=== PATIENT | male | born 1985 | race Caucasian/White ===

== ENCOUNTER 2020-10-25 08:30 | Emergency (ER) | payer OTHER ==
[2020-10-25 08:34] VITALS: RESP 16
[2020-10-25] MEDS ORDERED: FAMOTIDINE 20 MG/2 ML VIAL IV STA (08:50)
[2020-10-25] MEDS ORDERED: SODIUM CHLORIDE 0.9% 1,000 ML IV STA (08:50)
[2020-10-25] MEDS ORDERED: ONDANSETRON 4 MG/2 ML VIAL IVP STA (08:50)
--- NOTE | 2020-10-25 08:52 | ED ---
General Adult HPI - General Chief complaint: Nausea/Vomiting/Diarrhea Stated complaint: Allergic reaction Source: patient Mode of arrival: ambulatory Limitations: no limitations - History of Present Illness Initial comments: 35-year-old male presents to the emergency room for not feeling well. Patient reports he has nausea vomiting diarrhea. States he has had this on and off for several months now. States that at 6 AM this morning he had one episode of diarrhea and felt like he had to vomit but could not make himself. Patient states this happens quite frequently. He states that today he decided to come into the ER because he has "just done with it." Patient states he has not tried to follow-up with his primary care doctor over the past several months. Admits to some mild epigastric pain associated with these symptoms. Denies any right upper quadrant pain. Denies any postprandial pain. Patient has no other complaints at this time including shortness of breath, chest pain, headache, or visual changes. - Related Data Home Medications Medication Instructions Recorded Confirmed Citalopram Hydrobromide 40 mg PO HS 10/25/20 10/25/20 [Citalopram HBr] amLODIPine [Norvasc] 5 mg PO HS 10/25/20 10/25/20 Previous Rx's Medication Instructions Recorded Dicyclomine [Bentyl] 20 mg PO TID PRN #20 tablet 10/25/20 Famotidine [Pepcid] 20 mg PO BID #28 tablet 10/25/20 Ondansetron [Zofran ODT] 4 mg PO Q8HR PRN #15 tab 10/25/20 Allergies Allergy/AdvReac Type Severity Reaction Status Date / Time No Known Allergies Allergy Verified 10/25/20 10:02 Review of Systems ROS Statement: Those systems with pertinent positive or pertinent negative responses have been documented in the HPI. ROS Other: All systems not noted in ROS Statement are negative. Past Medical History Past Medical History: No Reported History History of Any Multi-Drug Resistant Organisms: None Reported Past Surgical History: No Surgical Hx Reported Past Psychological History: No Psychological Hx Reported Smoking Status: Never smoker Past Alcohol Use History: None Reported Past Drug Use History: Marijuana General Exam Limitations: no limitations General appearance: alert, in no apparent distress Head exam: Present: atraumatic, normocephalic, normal inspection Eye exam: Present: normal appearance, PERRL, EOMI. Absent: scleral icterus, conjunctival injection ENT exam: Present: normal exam, mucous membranes moist Neck exam: Present: normal inspection, full ROM. Absent: tenderness Respiratory exam: Present: normal lung sounds bilaterally. Absent: respiratory distress, wheezes Cardiovascular Exam: Present: regular rate, normal rhythm, normal heart sounds GI/Abdominal exam: Present: soft, tenderness (minimal epigastric tenderness without guarding or rebound), normal bowel sounds. Absent: distended Back exam: Absent: CVA tenderness (R), CVA tenderness (L) Neurological exam: Present: alert Course Vital Signs 10/25/20 08:31 Temperature 98.0 F Pulse Rate 69 Respiratory 16 Rate Blood Pressure 174/98 O2 Sat by Pulse 100 Oximetry Medical Decision Making - Medical Decision Making Vitals are stable. Physical exam reveals minimal upper abdominal tenderness without guarding or rebound. CBC shows leukocytosis with a left shift. CMP unremarkable. Patient has a touch of elevation of amylase and lipase however this is not 3 times above normal limit. Urinalysis does show 2+ ketones likely secondary to dehydration. Patient was given a liter of normal saline. Gallbladder ultrasound shows no acute process. X-ray KUB shows no acute process. Patient was given pain medications and antiemetics. His symptoms did improve significantly. He is tolerating oral intake. No vomiting actively in the emergency room. Symptoms really started this morning. At this time patient is stable for discharge home. However if he develops worsening symptoms he will return to the emergency room. - Lab Data Result diagrams: 10/25/20 08:53 10/25/20 08:53 Lab Results 10/25/20 10/25/20 10/25/20 Range/Units 08:53 08:53 09:44 WBC 11.2 H (3.8-10.6) k/uL RBC 5.71 (4.30-5.90) m/uL Hgb 16.5 (13.0-17.5) gm/dL Hct 48.6 (39.0-53.0) % MCV 85.3 (80.0-100.0) fL MCH 29.0 (25.0-35.0) pg MCHC 34.0 (31.0-37.0) g/dL RDW 12.4 (11.5-15.5) % Plt Count 211 (150-450) k/uL MPV 7.9 Neutrophils % 79 % Lymphocytes % 14 % Monocytes % 4 % Eosinophils % 1 % Basophils % 1 % Neutrophils # 8.9 H (1.3-7.7) k/uL Lymphocytes # 1.6 (1.0-4.8) k/uL Monocytes # 0.5 (0-1.0) k/uL Eosinophils # 0.2 (0-0.7) k/uL Basophils # 0.1 (0-0.2) k/uL Sodium 138 (137-145) mmol/L Potassium 3.9 (3.5-5.1) mmol/L Chloride 104 (98-107) mmol/L Carbon Dioxide 22 (22-30) mmol/L Anion Gap 12 mmol/L BUN 18 (9-20) mg/dL Creatinine 1.09 (0.66-1.25) mg/dL Est GFR (CKD-EPI)AfAm >90 (>60 ml/min/1.73 sqM) Est GFR (CKD-EPI)NonAf 87 (>60 ml/min/1.73 sqM) Glucose 158 H (74-99) mg/dL Calcium 9.9 (8.4-10.2) mg/dL Total Bilirubin 0.5 (0.2-1.3) mg/dL AST 27 (17-59) U/L ALT 21 (4-49) U/L Alkaline Phosphatase 69 (38-126) U/L Total Protein 8.1 (6.3-8.2) g/dL Albumin 5.0 (3.5-5.0) g/dL Amylase 233 H (30-110) U/L Lipase 484 H (23-300) U/L Urine Color Light Yellow Urine Appearance Cloudy (Clear) Urine pH 8.5 H (5.0-8.0) Ur Specific [place] 1.019 (1.001-1.035) Urine Protein Trace H (Negative) Urine Glucose (UA) 2+ H (Negative) Urine Ketones 2+ H (Negative) Urine Blood Negative (Negative) Urine Nitrite Negative (Negative) Urine Bilirubin Negative (Negative) Urine Urobilinogen <2.0 (<2.0) mg/dL Ur Leukocyte Esterase Negative (Negative) Urine WBC 1 (0-5) /hpf Urine Bacteria Rare H (None) /hpf Urine Mucus Rare H (None) /hpf Disposition Clinical Impression: Nausea vomiting and diarrhea Disposition: HOME SELF-CARE Condition: Good Instructions (If sedation given, give patient instructions): Acute Nausea and Vomiting (ED), Acute Diarrhea (ED) Additional Instructions: Please drink plenty of fluids. Take zofran as needed for nausea. Take pepcid for stomach acid as directed. Follow up with primary care and GI in 1-2 days. If you are having worsening symptoms or are not able to keep down liquids with nausea medication then return to the ER for further evaluation Prescriptions: Dicyclomine [Bentyl] 20 mg PO TID PRN #20 tablet PRN Reason: abdominal pain Famotidine [Pepcid] 20 mg PO BID #28 tablet Ondansetron [Zofran ODT] 4 mg PO Q8HR PRN #15 tab PRN Reason: Nausea Is patient prescribed a controlled substance at d/c from ED?: No Referrals: Quintin Thompson MD [Primary Care Provider] - 1-2 days Tyler Dunn MD [STAFF PHYSICIAN] - 1-2 days Time of Disposition: 11:59
[2020-10-25 09:04] LABS: Basophils # (A) 0.1 k/uL (0-0.2); Basophils % (A) 1 %; Eosinophils # (A) 0.2 k/uL (0-0.7); Eosinophils % (A) 1 %; HCT 48.6 % (39.0-53.0); HGB 16.5 gm/dL (13.0-17.5); Lymphocytes # (A) 1.6 k/uL (1.0-4.8); Lymphocytes % (A) 14 %; MCV 85.3 fL (80.0-100.0); Mean Platelet Volume 7.9; Monocytes # (A) 0.5 k/uL (0-1.0); Monocytes % (A) 4 %; Neutrophils # (A) 8.9 k/uL (1.3-7.7); Neutrophils % (A) 79 %; Platelet Count 211 k/uL (150-450); RBC 5.71 m/uL (4.30-5.90); RDW 12.4 % (11.5-15.5); WBC 11.2 k/uL (3.8-10.6)
[2020-10-25 09:13] LABS: ALT 21 U/L (4-49); AST 27 U/L (17-59); African American GFR (CKD) >90 (>60 ml/min/1.73 sqM); Alkaline Phosphatase 69 U/L (38-126); Amylase 233 U/L (30-110); Anion Gap 12 mmol/L; Blood Urea Nitrogen 18 mg/dL (9-20); Calcium 9.9 mg/dL (8.4-10.2); Carbon Dioxide 22 mmol/L (22-30); Chloride 104 mmol/L (98-107); Glucose 158 mg/dL (74-99); Lipase 484 U/L (23-300); Non-African American GFR(CKD) 87 (>60 ml/min/1.73 sqM); Potassium 3.9 mmol/L (3.5-5.1); Sodium 138 mmol/L (137-145); Total Bilirubin 0.5 mg/dL (0.2-1.3); Total Protein 8.1 g/dL (6.3-8.2)
[2020-10-25] MEDS ORDERED: KETOROLAC 15 MG/ML 1 ML VIAL IVP STA (09:49)
[2020-10-25 10:02] LABS: Appearance,Urine Cloudy (Clear); Bacteria,Urine Rare /hpf; Bilirubin,Urine Negative (Negative); Blood,Urine Negative (Negative); Color,Urine Light Yellow; Glucose,Urine (UA) 2+ (Negative); Leukocyte Esterase,Urine Negative (Negative); Mucus,Urine Rare /hpf; Nitrite,Urine Negative (Negative); PH, Urine 8.5 (5.0-8.0); Protein,Urine Trace (Negative); Specific Gravity,Urine 1.019 (1.001-1.035); Urobilinogen,Urine <2.0 mg/dL (<2.0); WBC,Urine 1 /hpf (0-5)
[2020-10-25] MEDS ORDERED: HYDROmorphone 0.5 MG/0.5 ML SYRINGE IVP STA ×2 (10:25→11:57)
--- NOTE | 2020-10-25 10:26 | US ---
EXAMINATION TYPE: US gallbladder DATE OF EXAM: 10/25/2020 COMPARISON: NONE CLINICAL HISTORY: ruq paun. Pain. Patient states he was unable to eat today. EXAM MEASUREMENTS: Liver Length: 15.2 cm Gallbladder Wall: 0.2 cm CBD: 0.2 cm Right Kidney: 9.3 x 5.8 x 4.7 cm Pancreas: Tail obscured by overlying bowel gas Liver: wnl Gallbladder: wnl Evidence for sonographic Gallegos's sign: neg CBD: wnl Right Kidney: No hydronephrosis or masses seen IMPRESSION: 1. No acute process.
--- NOTE | 2020-10-25 10:45 | XR ---
EXAMINATION TYPE: XR KUB DATE OF EXAM: 10/25/2020 COMPARISON: NONE HISTORY: Pain TECHNIQUE: Single supine KUB image of the abdomen is obtained FINDINGS: Small bowel demonstrates no evidence for dilatation or air fluid levels. Gas and fecal material is seen in non-distended colon. No convincing evidence for pneumoperitoneum. No unusual calcifications. The lung bases are clear. The osseous structures are intact. IMPRESSION: 1. Overall nonobstructive bowel gas pattern.
[2020-10-25] MEDS ORDERED: METOCLOPRAMIDE 5 MG/ML 2 ML VIAL IVP STA (11:15)
[2020-10-25] MEDS ORDERED: diphenhydrAMINE 50 MG/ML 1 ML VIAL IVP STA (11:15)
[2020-10-25 11:16] LABS: Ketones,Urine 2+ (Negative)
[2020-10-25 12:35] VITALS: BP 145/88; PULSE 74; TEMP 97.3
== END 2020-10-25 12:35 | disposition home or self-care (01) ==
LOC: EC 08:30
DX: R11.2 Nausea with vomiting, unspecified (principal); R19.7 Diarrhea, unspecified; R10.13 Epigastric pain; R10.816 Epigastric abdominal tenderness; D72.829 Elevated white blood cell count, unspecified; Z79.899 Other long term (current) drug therapy
CPT/HCPCS: 36415; 74018; 76705; 80053; 81001; 82150; 83690; 85025; 96361; 96374; 96375; 96376; 99284

== ENCOUNTER 2021-07-01 06:29 | Emergency (ER) | payer OTHER ==
[2021-07-01 06:36] VITALS: TEMP 98.2
[2021-07-01] MEDS ORDERED: MORPHINE SULFATE 4 MG/ML SYRINGE IVP STA (07:18)
[2021-07-01] MEDS ORDERED: SODIUM CHLORIDE 0.9% 1,000 ML IV STA (07:18)
[2021-07-01] MEDS ORDERED: ONDANSETRON 4 MG/2 ML VIAL IVP STA (07:18)
[2021-07-01 07:19] LABS: Basophils # (A) 0.1 k/uL (0-0.2); Basophils % (A) 1 %; Eosinophils # (A) 0.3 k/uL (0-0.7); Eosinophils % (A) 2 %; HCT 47.2 % (39.0-53.0); HGB 15.6 gm/dL (13.0-17.5); Lymphocytes # (A) 1.8 k/uL (1.0-4.8); Lymphocytes % (A) 13 %; MCH 28.7 pg (25.0-35.0); MCV 86.9 fL (80.0-100.0); Mean Platelet Volume 8.6; Monocytes # (A) 0.5 k/uL (0-1.0); Monocytes % (A) 4 %; Neutrophils # (A) 11.7 k/uL (1.3-7.7); Neutrophils % (A) 80 %; Platelet Count 226 k/uL (150-450); RBC 5.43 m/uL (4.30-5.90); RDW 11.6 % (11.5-15.5); WBC 14.7 k/uL (3.8-10.6)
--- NOTE | 2021-07-01 07:21 | XR ---
EXAMINATION TYPE: XR KUB DATE OF EXAM: 07/01/2021 COMPARISON: 10/25/2020 HISTORY: Pain TECHNIQUE: Single supine KUB image of the abdomen is obtained FINDINGS: Small bowel demonstrates no evidence for dilatation or air fluid levels. Gas and fecal material is seen in non-distended colon. No convincing evidence for pneumoperitoneum. No unusual calcifications. The lung bases are clear. The osseous structures are intact. IMPRESSION: 1. Overall nonobstructive bowel gas pattern.
--- NOTE | 2021-07-01 07:21 | ED ---
General Adult HPI - General Chief complaint: Abdominal Pain Stated complaint: Abd Pain Time Seen by Provider: 07/01/21 06:37 Source: patient Mode of arrival: wheelchair Limitations: no limitations - History of Present Illness Initial comments: 36-year-old male without any significant past medical history presents to the emergency room for "pancreatic pain." Patient states he has had upper abdominal pain for about 2 hours prior to arrival. Patient states she has nausea with this as well. Patient states he gets these attacks of pain once a month or so. Patient states he usually stays home for them but recently saw a kier drier and was told to come to the emergency room when it happens again to get bloodwork drawn. Patient is requesting something for pain. Patient states he used to drink alcohol but no longer drinks. Patient has no other complaints at this time including shortness of breath, chest pain, vomiting, headache, or visual changes. - Related Data Home Medications Medication Instructions Recorded Confirmed Citalopram Hydrobromide 40 mg PO HS 10/25/20 10/25/20 [Citalopram HBr] amLODIPine [Norvasc] 5 mg PO HS 10/25/20 10/25/20 Previous Rx's Medication Instructions Recorded Dicyclomine [Bentyl] 20 mg PO TID PRN #20 tablet 10/25/20 Famotidine [Pepcid] 20 mg PO BID #28 tablet 10/25/20 Ondansetron [Zofran ODT] 4 mg PO Q8HR PRN #15 tab 10/25/20 Allergies Allergy/AdvReac Type Severity Reaction Status Date / Time No Known Allergies Allergy Verified 07/01/21 06:36 Review of Systems ROS Statement: Those systems with pertinent positive or pertinent negative responses have been documented in the HPI. ROS Other: All systems not noted in ROS Statement are negative. Past Medical History Past Medical History: No Reported History History of Any Multi-Drug Resistant Organisms: None Reported Past Surgical History: No Surgical Hx Reported Past Psychological History: No Psychological Hx Reported Smoking Status: Never smoker Past Alcohol Use History: Occasional Past Drug Use History: Marijuana General Exam Limitations: no limitations General appearance: alert, in no apparent distress Head exam: Present: atraumatic, normocephalic, normal inspection Eye exam: Present: normal appearance, PERRL, EOMI ENT exam: Present: normal exam, mucous membranes moist Neck exam: Present: normal inspection, full ROM. Absent: tenderness Respiratory exam: Present: normal lung sounds bilaterally. Absent: respiratory distress, wheezes Cardiovascular Exam: Present: regular rate, normal rhythm, normal heart sounds GI/Abdominal exam: Present: soft, tenderness (epigastric tendernes, no other upper or lower abd tenderness), normal bowel sounds. Absent: distended Course Vital Signs 07/01/21 07/01/21 07/01/21 06:31 09:03 09:50 Temperature 98.2 F Pulse Rate 55 L 46 L 68 Respiratory 20 16 20 Rate Blood Pressure 173/92 149/87 135/74 O2 Sat by Pulse 100 100 98 Oximetry Medical Decision Making - Medical Decision Making Vitals are stable. Patient well-appearing. Patient does have epigastric tenderness. CBC does show mild leukocytosis. CMP is unremarkable. Lipase is normal. Amylase only minimally elevated 111. Gallbladder ultrasound was normal aside from a positive sonographic Gallegos sign. At this time patient is stable for outpatient management as his has chronically been happening monthly for quite some time. It looks like patient had an appointment with GI in December. He did bring her in order for outpatient labs from that time that he hasn't had drawn yet. I did encourage him to get these drawn and follow back up with GI as soon as possible. Discharged home in stable condition. He will return here for any worsening symptoms. - Lab Data Result diagrams: 07/01/21 06:43 07/01/21 06:43 Lab Results 07/01/21 07/01/21 Range/Units 06:43 06:43 WBC 14.7 H (3.8-10.6) k/uL RBC 5.43 (4.30-5.90) m/uL Hgb 15.6 (13.0-17.5) gm/dL Hct 47.2 (39.0-53.0) % MCV 86.9 (80.0-100.0) fL MCH 28.7 (25.0-35.0) pg MCHC 33.0 (31.0-37.0) g/dL RDW 11.6 (11.5-15.5) % Plt Count 226 (150-450) k/uL MPV 8.6 Neutrophils % 80 % Lymphocytes % 13 % Monocytes % 4 % Eosinophils % 2 % Basophils % 1 % Neutrophils # 11.7 H (1.3-7.7) k/uL Lymphocytes # 1.8 (1.0-4.8) k/uL Monocytes # 0.5 (0-1.0) k/uL Eosinophils # 0.3 (0-0.7) k/uL Basophils # 0.1 (0-0.2) k/uL Sodium 138 (137-145) mmol/L Potassium 4.0 (3.5-5.1) mmol/L Chloride 105 (98-107) mmol/L Carbon Dioxide 21 L (22-30) mmol/L Anion Gap 12 mmol/L BUN 16 (9-20) mg/dL Creatinine 0.94 (0.66-1.25) mg/dL Est GFR (CKD-EPI)AfAm >90 (>60 ml/min/1.73 sqM) Est GFR (CKD-EPI)NonAf >90 (>60 ml/min/1.73 sqM) Glucose 151 H (74-99) mg/dL Calcium 10.0 (8.4-10.2) mg/dL Total Bilirubin 0.6 (0.2-1.3) mg/dL AST 26 (17-59) U/L ALT 20 (4-49) U/L Alkaline Phosphatase 70 (38-126) U/L Total Protein 7.6 (6.3-8.2) g/dL Albumin 4.7 (3.5-5.0) g/dL Amylase 111 H (30-110) U/L Lipase 255 (23-300) U/L Serum Alcohol <10 mg/dL Disposition Clinical Impression: Abdominal pain Disposition: HOME SELF-CARE Condition: Good Instructions (If sedation given, give patient instructions): Abdominal Pain (ED) Additional Instructions: Please take zofran as needed for nausea. Get your outpatient labs done for your specialist. Follow up with GI as soon as possible. Return to the ER for any worsening symptoms. Is patient prescribed a controlled substance at d/c from ED?: No Referrals: Quintin Thompson MD [Primary Care Provider] - 1-2 days Lakshmi Bolton MD [STAFF PHYSICIAN] - 1-2 days Time of Disposition: 08:37
[2021-07-01 07:36] LABS: ALT 20 U/L (4-49); AST 26 U/L (17-59); African American GFR (CKD) >90 (>60 ml/min/1.73 sqM); Albumin 4.7 g/dL (3.5-5.0); Alcohol <10 mg/dL; Alkaline Phosphatase 70 U/L (38-126); Amylase 111 U/L (30-110); Anion Gap 12 mmol/L; Blood Urea Nitrogen 16 mg/dL (9-20); Carbon Dioxide 21 mmol/L (22-30); Chloride 105 mmol/L (98-107); Glucose 151 mg/dL (74-99); Lipase 255 U/L (23-300); Non-African American GFR(CKD) >90 (>60 ml/min/1.73 sqM); Sodium 138 mmol/L (137-145); Total Bilirubin 0.6 mg/dL (0.2-1.3); Total Protein 7.6 g/dL (6.3-8.2)
--- NOTE | 2021-07-01 08:24 | US ---
EXAMINATION TYPE: US gallbladder DATE OF EXAM: 07/01/2021 COMPARISON: Exam 10/25/2020 ultrasound gallbladder CLINICAL HISTORY: pain. abd pain, h/o pancreatitis, N/V EXAM MEASUREMENTS: Liver Length: 15.5 cm Gallbladder Wall: 0.3 cm CBD: 0.4 cm Right Kidney: 9.3 x 4.7 x 4.4 cm Pancreas: wnl its visualized portions Liver: wnl Gallbladder: No evident stone Evidence for sonographic Gallegos's sign: YES CBD: wnl Right Kidney: wnl IMPRESSION: Correlate for positive sonographic Gallegos sign.
[2021-07-01] MEDS ORDERED: HYDROmorphone 0.5 MG/0.5 ML SYRINGE IVP STA (08:38)
[2021-07-01 09:51] VITALS: BP 135/74; PULSE 68; RESP 20
== END 2021-07-01 09:51 | disposition home or self-care (01) ==
LOC: EC 06:29
DX: R10.13 Epigastric pain (principal); D72.829 Elevated white blood cell count, unspecified; F12.90 Cannabis use, unspecified, uncomplicated; Z79.899 Other long term (current) drug therapy
CPT/HCPCS: 80053; 82150; 83690; 85025; 80320; 74018; 76705; 99284; 96374; 96375 ×2; 96361; J2270; J2405; J1170

== ENCOUNTER 2023-02-23 10:18 | Emergency (ER) | payer OTHER ==
[2023-02-23 10:48] VITALS: BP 175/96; PULSE 70; RESP 18; TEMP 97.6
[2023-02-23] MEDS ORDERED: SODIUM CHLORIDE 0.9% 1,000 ML IV STA ×2 (10:54→11:55)
[2023-02-23] MEDS ORDERED: ONDANSETRON 4 MG/2 ML VIAL IVP STA (10:55)
[2023-02-23] MEDS ORDERED: KETOROLAC 15 MG/ML 1 ML VIAL IVP STA (10:56)
[2023-02-23 11:42] LABS: ALT 22 U/L (4-49); AST 24 U/L (17-59); African American GFR (CKD) >90 (>60 ml/min/1.73 sqM); Albumin 4.4 g/dL (3.5-5.0); Alkaline Phosphatase 59 U/L (38-126); Anion Gap 11 mmol/L; Blood Urea Nitrogen 13 mg/dL (9-20); Calcium 9.1 mg/dL (8.4-10.2); Carbon Dioxide 23 mmol/L (22-30); Chloride 105 mmol/L (98-107); Glucose 147 mg/dL (74-99); Lipase 224 U/L (23-300); Non-African American GFR(CKD) >90 (>60 ml/min/1.73 sqM); Potassium 3.7 mmol/L (3.5-5.1); Sodium 139 mmol/L (137-145); Total Bilirubin 0.3 mg/dL (0.2-1.3)
[2023-02-23] MEDS ORDERED: HYDROmorphone 0.5 MG/0.5 ML SYRINGE IVP STA (11:55)
[2023-02-23 12:02] LABS: Appearance,Urine Clear (Clear); Bilirubin,Urine Negative (Negative); Blood,Urine Negative (Negative); Color,Urine Yellow; Glucose,Urine (UA) Trace (Negative); Ketones,Urine 2+ (Negative); Leukocyte Esterase,Urine Negative (Negative); Nitrite,Urine Negative (Negative); PH, Urine 6.5 (5.0-8.0); Protein,Urine Trace (Negative); Specific Gravity,Urine 1.025 (1.001-1.035); Urobilinogen,Urine <2.0 mg/dL (<2.0)
[2023-02-23 12:27] LABS: Basophils % (A) 0 %; Eosinophils # (A) 0.1 k/uL (0-0.7); Eosinophils % (A) 1 %; HGB 15.5 gm/dL (13.0-17.5); Lymphocytes % (A) 7 %; MCH 28.7 pg (25.0-35.0); MCHC 33.6 g/dL (31.0-37.0); MCV 85.1 fL (80.0-100.0); Mean Platelet Volume 8.6; Monocytes # (A) 0.4 k/uL (0-1.0); Monocytes % (A) 3 %; Neutrophils # (A) 11.8 k/uL (1.3-7.7); Neutrophils % (A) 88 %; Platelet Count 195 k/uL (150-450); RDW 12.2 % (11.5-15.5); WBC 13.4 k/uL (3.8-10.6)
--- NOTE | 2023-02-23 12:59 | CT ---
EXAMINATION TYPE: CT abdomen pelvis w con DATE OF EXAM: 02/23/2023 COMPARISON: None HISTORY: abd pain CT DLP: 847.7 mGycm CONTRAST: CT scan of the abdomen and pelvis is performed without Oral Contrast and with IV Contrast, patient in jected with 100 mL of Isovue 300. FINDINGS: LUNG BASES-: No visible nodule. No infiltrate. LIVER/GB: No calcified gallstones. No space occupying hepatic lesion. Biliary tree is of normal ca liber. PANCREAS: No inflammation. No distinct mass. SPLEEN: No splenic enlargement. No lesion seen. ADRENALS: No nodule. No thickening. KIDNEYS/BLADDER: No hydronephrosis. No nephrolithiasis. No distinct renal mass. Urinary bladder g rossly unremarkable. BOWEL: Normal appendix. Normal bowel caliber. No inflammation. GENITAL ORGANS: No gross abnormality. LYMPH NODES: No greater than 1cm abdominal or pelvic lymph nodes are appreciated. AORTA: No significant abnormality. OSSEOUS STRUCTURES: No significant abnormality is seen. OTHER: Trace amount of fluid within the pelvis. IMPRESSION: 1. No acute intra-abdominal process seen to account for the patient's symptoms.
--- NOTE | 2023-02-23 13:29 | ED ---
Abdominal Pain HPI - General Chief Complaint: Abdominal Pain Stated Complaint: ABD Pain Time Seen by Provider: 02/23/23 10:54 Source: patient, family Mode of arrival: ambulatory Limitations: no limitations - History of Present Illness Initial Comments: Patient is a 37 -year-old male who presents to the emergency department for abdominal pain. It started this morning. Patient has history of pancreatitis he feels he is having a pancreatitis episode. He reports pain all over his abdomen there is no radiation. States these episodes occur every couple weeks for several months. Pain is worse than his typical episodes today. He reports nausea without vomiting. No fever or chills. No urinary symptoms. No diarrhea, constipation. He does admit to intermittent bright red blood streaks in his stool for the past year. States he has never got it evaluated. He denies family history of colon cancer. He has never had a colonoscopy. He has an appointment with Dr. Bolton next week. Patient did drink alcohol over the weekend. He denies use of new medications. - Related Data Home Medications Medication Instructions Recorded Confirmed Citalopram Hydrobromide 40 mg PO HS 10/25/20 10/25/20 [Citalopram HBr] amLODIPine [Norvasc] 5 mg PO HS 10/25/20 10/25/20 Previous Rx's Medication Instructions Recorded Dicyclomine [Bentyl] 20 mg PO TID PRN #20 tablet 10/25/20 Famotidine [Pepcid] 20 mg PO BID #28 tablet 10/25/20 Ondansetron [Zofran ODT] 4 mg PO Q8HR PRN #15 tab 10/25/20 Acetaminophen Tab [Tylenol] 650 mg PO Q4H PRN #30 tab 02/23/23 Ibuprofen [Motrin] 800 mg PO Q8HR PRN #30 tab 02/23/23 Ondansetron Odt [Zofran Odt] 4 mg PO Q8HR PRN #10 tab 02/23/23 Allergies Allergy/AdvReac Type Severity Reaction Status Date / Time No Known Allergies Allergy Verified 02/23/23 10:49 Review of Systems ROS Statement: Those systems with pertinent positive or pertinent negative responses have been documented in the HPI. ROS Other: All systems not noted in ROS Statement are negative. Past Medical History Past Medical History: No Reported History History of Any Multi-Drug Resistant Organisms: None Reported Past Surgical History: No Surgical Hx Reported Past Psychological History: No Psychological Hx Reported Smoking Status: Never smoker Past Alcohol Use History: Occasional Past Drug Use History: Marijuana General Exam Limitations: no limitations General appearance: alert, in no apparent distress Head exam: Present: atraumatic, normocephalic, normal inspection Eye exam: Present: normal appearance, PERRL, EOMI. Absent: scleral icterus, conjunctival injection, periorbital swelling Respiratory exam: Present: normal lung sounds bilaterally. Absent: respiratory distress, wheezes, rales, rhonchi, stridor Cardiovascular Exam: Present: regular rate, normal rhythm, normal heart sounds. Absent: systolic murmur, diastolic murmur, rubs, gallop, clicks GI/Abdominal exam: Present: soft, tenderness (Mild generalized), normal bowel sounds. Absent: distended, guarding, rebound, rigid Neurological exam: Present: alert, oriented X3, CN II-XII intact Psychiatric exam: Present: normal affect, normal mood Skin exam: Present: warm, dry, intact, normal color. Absent: rash Course Vital Signs 02/23/23 02/23/23 10:45 13:37 Temperature 97.6 F Pulse Rate 70 Respiratory 18 18 Rate Blood Pressure 175/96 O2 Sat by Pulse 100 Oximetry Medical Decision Making - Medical Decision Making Was pt. sent in by a medical professional or institution (PHANI Fernandez, ODD SHOE EXAMINER, urgent care, hospital, or usp...) When possible be specific @ -No Did you speak to anyone other than the patient for history (EMS, parent, family, police, friend...)? What history was obtained from this source @ -No Did you review nursing and triage notes (agree or disagree)? Why? @ -I reviewed and agree with nursing and triage notes Were old charts reviewed (outside hosp., previous admission, EMS record, old EKG, old radiological studies, urgent care reports/EKG's, usp records)? Report findings @ -No old charts were reviewed Differential Diagnosis (chest pain, altered mental status, abdominal pain women, abdominal pain men, vaginal bleeding, weakness, fever, dyspnea, syncope, headache, dizziness, GI bleed, back pain, seizure, CVA, palpatations, mental health)? @ -Differential Abdominal Pain Men: Appendicitis, cholecystitis, diverticulosis, ischemic bowel, pancreatitis, hepatitis, UTI, gastroenteritis, AAA, incarcerated hernia, bowel obstruction, constipation, inflammatory bowel, hepatitis, peptic ulcer disease, splenic infarction, perforated viscus, testicular torsion, this is not meant to be an all-inclusive list EKG interpreted by me (3pts min.). @ -[None X-rays interpreted by me (1pt min.). @ -None done CT interpreted by me (1pt min.). @ -No acute intra-abdominal process U/S interpreted by me (1pt. min.). @ -None done What testing was considered but not performed or refused? (CT, X-rays, U/S, labs)? Why? @ -None What meds were considered but not given or refused? Why? @ -None Did you discuss the management of the patient with other professionals (jesse truong i.eMelva Fernandez, PA, ODD SHOE EXAMINER, lab, RT, psych nurse, psychotherapist social worker, grain broker, teacher, animal control officer, wrapper caser)? Give summary @ -No Was smoking cessation discussed for >3mins.? @ -No Was critical care preformed (if so, how long)? @ -No Were there social determinants of health that impacted care today? How? (Homelessness, low income, unemployed, alcoholism, drug addiction, transportation, low edu. Level, literacy, decrease access to med. care, half-way, rehab)? @ -No Was there de-escalation of care discussed even if they declined (Discuss DNR or withdrawal of care, Hospice)? DNR status @ -No What co-morbidities impacted this encounter? (DM, HTN, Smoking, COPD, CAD, Cancer, CVA, ARF, Chemo, Hep., AIDS, mental health diagnosis, sleep apnea, morbid obesity)? @ -None Was patient admitted / discharged? Hospital course, mention meds given and route, prescriptions, significant lab abnormalities, going to OR and other pertinent info. @Patient presenting for generalized abdominal pain. He is well-appearing the abdomen is soft with mild generalized tenderness. He is afebrile. Upon evaluation patient immediately asks for Dilaudid. Laboratory studies obtained there is mild leukocytosis at 13.4. Lipase within normal limits. Lactic is elevated at 2.5, I suspect related to dehydration. Urinalysis reveals 2+ ketones. Stool occult is negative. Patient given toradol, IV fluids. CT interpreted by myself/radiology showing no acute intra abdominal process. Results discussed with patient. Patient states pain did not respond to toradol. He was given 1 dose of dilaudid with improvement however did ask for another dose. This was declined as patient will need to follow up with GI specialist for chronic pain. He is in stable medical condition for discharge. We discussed alternation of tylenol and motrin for pain patient to follow up with Dr. Che huggins weeek as planned. Undiagnosed new problem with uncertain prognosis? @ -No Drug Therapy requiring intensive monitoring for toxicity (Heparin, Nitro, Insulin, Cardizem)? @ -No Were any procedures done? @ -No Diagnosis/symptom? @ -abdominal pain Acute, or Chronic, or Acute on Chronic? @ -acute on chronic Uncomplicated (without systemic symptoms) or Complicated (systemic symptoms)? @ -uncomplicated Side effects of treatment? @ -No Exacerbation, Progression, or Severe Exacerbation? @ -No Poses a threat to life or bodily function? How? (Chest pain, USA, [place], pneumonia, PE, COPD, DKA, ARF, appy, cholecystitis, CVA, Diverticulitis, Homicidal, Suicidal, threat to staff... and all critical care pts) @ -No Florecita Quintero is my attending - Lab Data Result diagrams: 02/23/23 11:22 02/23/23 11:22 Lab Results 02/23/23 02/23/23 02/23/23 Range/Units 11:22 11:22 11:22 WBC 13.4 H (3.8-10.6) k/uL RBC 5.40 (4.30-5.90) m/uL Hgb 15.5 (13.0-17.5) gm/dL Hct 46.0 (39.0-53.0) % MCV 85.1 (80.0-100.0) fL MCH 28.7 (25.0-35.0) pg MCHC 33.6 (31.0-37.0) g/dL RDW 12.2 (11.5-15.5) % Plt Count 195 (150-450) k/uL MPV 8.6 Neutrophils % 88 % Lymphocytes % 7 % Monocytes % 3 % Eosinophils % 1 % Basophils % 0 % Neutrophils # 11.8 H (1.3-7.7) k/uL Lymphocytes # 1.0 (1.0-4.8) k/uL Monocytes # 0.4 (0-1.0) k/uL Eosinophils # 0.1 (0-0.7) k/uL Basophils # 0.0 (0-0.2) k/uL Sodium 139 (137-145) mmol/L Potassium 3.7 (3.5-5.1) mmol/L Chloride 105 (98-107) mmol/L Carbon Dioxide 23 (22-30) mmol/L Anion Gap 11 mmol/L BUN 13 (9-20) mg/dL Creatinine 0.96 (0.66-1.25) mg/dL Est GFR (CKD-EPI)AfAm >90 (>60 ml/min/1.73 sqM) Est GFR (CKD-EPI)NonAf >90 (>60 ml/min/1.73 sqM) Glucose 147 H (74-99) mg/dL Lactic Ac Sepsis Rflx Plasma Lactic Acid Jaden (0.7-2.0) mmol/L Calcium 9.1 (8.4-10.2) mg/dL Total Bilirubin 0.3 (0.2-1.3) mg/dL AST 24 (17-59) U/L ALT 22 (4-49) U/L Alkaline Phosphatase 59 (38-126) U/L Total Protein 7.0 (6.3-8.2) g/dL Albumin 4.4 (3.5-5.0) g/dL Lipase 224 (23-300) U/L Urine Color Yellow Urine Appearance Clear (Clear) Urine pH 6.5 (5.0-8.0) Ur Specific [place] 1.025 (1.001-1.035) Urine Protein Trace H (Negative) Urine Glucose (UA) Trace H (Negative) Urine Ketones 2+ H (Negative) Urine Blood Negative (Negative) Urine Nitrite Negative (Negative) Urine Bilirubin Negative (Negative) Urine Urobilinogen <2.0 (<2.0) mg/dL Ur Leukocyte Esterase Negative (Negative) Stool Occult Blood (Negative) 02/23/23 02/23/23 02/23/23 Range/Units 11:22 11:49 11:56 WBC (3.8-10.6) k/uL RBC (4.30-5.90) m/uL Hgb (13.0-17.5) gm/dL Hct (39.0-53.0) % MCV (80.0-100.0) fL MCH (25.0-35.0) pg MCHC (31.0-37.0) g/dL RDW (11.5-15.5) % Plt Count (150-450) k/uL MPV Neutrophils % % Lymphocytes % % Monocytes % % Eosinophils % % Basophils % % Neutrophils # (1.3-7.7) k/uL Lymphocytes # (1.0-4.8) k/uL Monocytes # (0-1.0) k/uL Eosinophils # (0-0.7) k/uL Basophils # (0-0.2) k/uL Sodium (137-145) mmol/L Potassium (3.5-5.1) mmol/L Chloride (98-107) mmol/L Carbon Dioxide (22-30) mmol/L Anion Gap mmol/L BUN (9-20) mg/dL Creatinine (0.66-1.25) mg/dL Est GFR (CKD-EPI)AfAm (>60 ml/min/1.73 sqM) Est GFR (CKD-EPI)NonAf (>60 ml/min/1.73 sqM) Glucose (74-99) mg/dL Lactic Ac Sepsis Rflx Y Plasma Lactic Acid Jaden 2.5 H* (0.7-2.0) mmol/L Calcium (8.4-10.2) mg/dL Total Bilirubin (0.2-1.3) mg/dL AST (17-59) U/L ALT (4-49) U/L Alkaline Phosphatase (38-126) U/L Total Protein (6.3-8.2) g/dL Albumin (3.5-5.0) g/dL Lipase (23-300) U/L Urine Color Urine Appearance (Clear) Urine pH (5.0-8.0) Ur Specific [place] (1.001-1.035) Urine Protein (Negative) Urine Glucose (UA) (Negative) Urine Ketones (Negative) Urine Blood (Negative) Urine Nitrite (Negative) Urine Bilirubin (Negative) Urine Urobilinogen (<2.0) mg/dL Ur Leukocyte Esterase (Negative) Stool Occult Blood Negative (Negative) Disposition Clinical Impression: Abdominal pain Disposition: HOME SELF-CARE Condition: Good Instructions (If sedation given, give patient instructions): Abdominal Pain (ED) Additional Instructions: Follow-up with Dr. Bolton next week as planned. Take medication as directed. Increase water intake. Return to the emergency department if you experience new, concerning, or worsening symptoms. Prescriptions: Ibuprofen [Motrin] 800 mg PO Q8HR PRN #30 tab PRN Reason: Pain Acetaminophen Tab [Tylenol] 650 mg PO Q4H PRN #30 tab PRN Reason: Pain Ondansetron Odt [Zofran Odt] 4 mg PO Q8HR PRN #10 tab PRN Reason: Nausea Is patient prescribed a controlled substance at d/c from ED?: No Referrals: Quintin Thompson MD [Primary Care Provider] - 1-2 days
== END 2023-02-23 13:43 | disposition home or self-care (01) ==
LOC: EC 10:18
DX: R10.9 Unspecified abdominal pain (principal); F12.90 Cannabis use, unspecified, uncomplicated
CPT/HCPCS: 36415; 80053; 83605; 83690; 85025; 82272; 81003; 74177; 99284; 96374; 96375 ×2; 96361 ×2; J2405; J1885; J1170; Q9967

== ENCOUNTER 2023-04-15 06:19 | Day surgery (SDC) | payer OTHER ==
[2023-04-15 06:47] VITALS: RESP 16; TEMP 97.2
[2023-04-15] MEDS ORDERED: LIDOCAINE 1% (10MG/ML) FOR IV START INTRADERMA PRN (06:53)
[2023-04-15] MEDS ORDERED: LACTATED RINGERS 1,000 ML IV SCH (06:53)
[2023-04-15] MEDS ORDERED: PROPOFOL 10 MG/ML 20 ML VIAL IV ONE (07:18)
[2023-04-15] MEDS ORDERED: LIDOCAINE 2% INJ 20 MG/ML (2 ML VIAL) ONE (07:18)
--- NOTE | 2023-04-15 07:44 | P.PCN ---
Date of Procedure: 04/15/23 Procedure(s) Performed: Brief history: Patient is a pleasant 37-year-old white male scheduled for an elective upper endoscopy as well as colonoscopy as a part of evaluation of diffuse abdominal pain, intermittent nausea vomiting and change in bowel habits for the last 2-3 years duration. Also has intermittent rectal bleeding happens once or twice a week. Procedure performed: Esophagogastroduodenoscopy with biopsy Colonoscopy Preoperative diagnosis: Diffuse abdominal pain, intermittent nausea vomiting Change in bowel habits and rectal bleeding Anesthesia: MAC Procedure: After informed consent was obtained from the patient was brought into the endoscopy unit and IV sedation was administered by anesthesia under continuous monitoring. Initially upper endoscopy was done. The Olympus GF 160 video endoscope was inserted inserted into the mouth and esophagus intubated without any difficulty and was gradually advanced into the stomach and duodenum and carefully examined. The bulb and second part of the duodenum appeared normal. Biopsies were done from the duodenum to rule out celiac disease. The scope was then withdrawn into the stomach adequately insufflated with air and upon careful examination the antrum had mild patchy areas of erythema consistent with gastritis and biopsies were done from this area. Mucosa body, cardia and fundus appeared normal. With 2 superficial erosions consistent with LA grade B reflux esophagitis. with no erythema erosions or ulcerations. Rest of the esophagus appeared normal. Patient tolerated the procedure well. At this time the patient continued to remain sedation. Initial digital rectal examination was normal. Olympus CF 160 video colonoscope was then inserted into the rectum and gradually advanced to the cecum without any difficulty. Careful examination was performed as the scope was gradually being withdrawn. The prep was excellent. The cecum, ascending colon, transverse colon, descending colon, sigmoid colon and rectum appeared normal. Retroflexion was performed in the rectum and small internal hemorrhoids were noted. Patient tolerated the procedure well. Impression: 1. Upper endoscopy revealed mild antral gastritis and LA grade B reflux esophagitis. 2. Colonoscopy was within normal limits with no evidence of colorectal neoplasia, and small internal hemorrhoids Recommendations: Findings of this examination were discussed with the patient as well as his family. He was advised to follow with the biopsy results and he'll be seen in office in 2-3 weeks.
[2023-04-15 08:07] VITALS: BP 121/80; PULSE 48
== END 2023-04-15 08:29 | disposition home or self-care (01) ==
LOC: ORWHC2ENDO 06:19
PROVIDERS: ATTEND Internal Medicine Gastroenterology
DX: K29.50 Unspecified chronic gastritis without bleeding (principal); K21.00 Gastro-esophageal reflux disease with esophagitis, without bleeding; K64.8 Other hemorrhoids; K62.5 Hemorrhage of anus and rectum; K29.80 Duodenitis without bleeding; Z79.899 Other long term (current) drug therapy
CPT/HCPCS: 88305; 45378; 43239; J2704; J2001

== ENCOUNTER 2023-04-24 10:56 | Inpatient (IN) | payer OTHER ==
--- NOTE | 2023-04-24 12:32 | ED ---
General Adult HPI - General Chief complaint: Psychiatric Symptoms Stated complaint: petition Time Seen by Provider: 04/24/23 11:05 Source: patient, police, RN notes reviewed, old records reviewed Mode of arrival: ambulatory Limitations: no limitations - History of Present Illness Initial comments: This is a 37-year-old male who presents emergency department stating that he is suicidal. Patient states she's had a history of depression and he attempted suicide once in the past. Patient states today he tried to hang himself but cannot slipped and by that time years regarding talk to his and told her goodbye and she called the [employer]. Patient denies taking any pills or alcohol today. Patient denies any drug use. Patient denies any physical complaints today. - Related Data Home Medications Medication Instructions Recorded Confirmed Citalopram Hydrobromide 40 mg PO HS 10/25/20 04/10/23 [Citalopram HBr] ALPRAZolam [Xanax] 0.25 mg PO DAILY PRN 04/10/23 04/10/23 Previous Rx's Medication Instructions Recorded Dicyclomine [Bentyl] 20 mg PO TID PRN #20 tablet 10/25/20 Ondansetron [Zofran ODT] 4 mg PO Q8HR PRN #15 tab 10/25/20 Ibuprofen [Motrin] 800 mg PO Q8HR PRN #30 tab 02/23/23 Allergies Allergy/AdvReac Type Severity Reaction Status Date / Time No Known Allergies Allergy Verified 04/24/23 11:07 Review of Systems ROS Statement: Those systems with pertinent positive or pertinent negative responses have been documented in the HPI. ROS Other: All systems not noted in ROS Statement are negative. Past Medical History Past Medical History: GERD/Reflux, Hypertension Additional Past Medical History / Comment(s): Nausea/rectal bleeding. Stomach ulcer as a child History of Any Multi-Drug Resistant Organisms: None Reported Past Surgical History: No Surgical Hx Reported Additional Past Surgical History / Comment(s): EGD Past Anesthesia/Blood Transfusion Reactions: No Reported Reaction Past Psychological History: Anxiety, Depression Smoking Status: Former smoker Past Alcohol Use History: Rare Past Drug Use History: Marijuana - Past Family History Father Family Medical History: Coronary Artery Disease (CAD), Diabetes Mellitus, Hypertension Additional Family Medical History / Comment(s): Rare bone disease/tumors Mother Family Medical History: No Reported History General Exam - General Exam Comments Initial Comments: GENERAL: Patient is well-developed and well-nourished. Patient is nontoxic and well- hydrated and is in no acute distress. ENT: Neck is soft and supple. No significant lymphadenopathy is noted. Oropharynx is clear. Moist mucous membranes. Neck has full range of motion without eliciting any pain. EYES: The sclera were anicteric and conjunctiva were pink and moist. Extraocular movements were intact and pupils were equal round and reactive to light. Eyelids were unremarkable. PULMONARY: Unlabored respirations. Good breath sounds bilaterally. No audible rales rho nchi or wheezing was noted. CARDIOVASCULAR: There is a regular rate and rhythm without any murmurs gallops or rubs. ABDOMEN: Soft and nontender with normal bowel sounds. SKIN: Skin is clear with no lesions or rashes and otherwise unremarkable. NEUROLOGIC: Patient is alert and oriented x3. Cranial nerves II through XII are grossly intact. Motor and sensory are also intact. Normal speech, volume and content. Symmetrical smile. MUSCULOSKELETAL: Normal extremities with adequate strength and full range of motion. LYMPHATICS: No significant lymphadenopathy is noted PSYCHIATRIC: Patient states he suicidal. Patient also states she's very depressed. Patient states he tried to hang himself today but then not slipped Limitations: no limitations Course Vital Signs 04/24/23 11:02 Temperature 98.1 F Pulse Rate 68 Respiratory 18 Rate Blood Pressure 172/109 O2 Sat by Pulse 98 Oximetry Medical Decision Making - Medical Decision Making Was pt. sent in by a medical professional or institution (, PHANI, RELIEF WORKER, urgent care, hospital, or halfway...) When possible be specific @ -[No] Did you speak to anyone other than the patient for history (EMS, parent, family, police, friend...)? What history was obtained from this source @ -[No] Did you review nursing and triage notes (agree or disagree)? Why? @ -[I reviewed and agree with nursing and triage notes] Were old charts reviewed (outside hosp., previous admission, EMS record, old EKG, old radiological studies, urgent care reports/EKG's, halfway records)? Report findings @ -[No old charts were reviewed] Differential Diagnosis (chest pain, altered mental status, abdominal pain women, abdominal pain men, vaginal bleeding, weakness, fever, dyspnea, syncope, headache, dizziness, GI bleed, back pain, seizure, CVA, palpatations, mental health, musculoskeletal)? @ -Differential Mental Health Depression, anxiety, bipolar, psychosis, schizophrenia, borderline personality, situational depression, adjustment disorder, behavioral disorder, brain tumor, malingering, substance abuse, encephalopathy, medication reaction, dementia, hypothyroidism, degenerative neurologic disorder, lupus.... This is not meant to be all-inclusive list EKG interpreted by me (3pts min.). @ -[As above] X-rays interpreted by me (1pt min.). @ -[None done] CT interpreted by me (1pt min.). @ -[None done] U/S interpreted by me (1pt. min.). @ -[None done] What testing was considered but not performed or refused? (CT, X-rays, U/S, labs)? Why? @ -[None] What meds were considered but not given or refused? Why? @ -[None] Did you discuss the management of the patient with other professionals (professionals i.e. , PA, RELIEF WORKER, lab, RT, psych nurse, family welfare social work professor, cylinder tester, teacher, liaison officer, disease case manager rn)? Give summary @ -Spoke with the EPS nurse Was smoking cessation discussed for >3mins.? @ -[No] Was critical care preformed (if so, how long)? @ -[No] Were there social determinants of health that impacted care today? How? (Homelessness, low income, unemployed, alcoholism, drug addiction, transportation, low edu. Level, literacy, decrease access to med. care, [facility], rehab)? @ -[No] Was there de-escalation of care discussed even if they declined (Discuss DNR or withdrawal of care, Hospice)? DNR status @ -[No] What co-morbidities impacted this encounter? (DM, HTN, Smoking, COPD, CAD, Cancer, CVA, ARF, Chemo, Hep., AIDS, mental health diagnosis, sleep apnea, mor bid obesity)? @ -[None] Was patient admitted / discharged? Hospital course, mention meds given and route, prescriptions, significant lab abnormalities, going to OR and other pertinent info. @ -Patient was never in any distress while in the emergency department he had no difficulty speaking or breathing. EPS evaluated the patient and determined the patient needed to be admitted patient will be admitted to the psychiatric floor Undiagnosed new problem with uncertain prognosis? @ -[No] Drug Therapy requiring intensive monitoring for toxicity (Heparin, Nitro, Insulin, Cardizem)? @ -[No] Were any procedures done? @ -[No] Diagnosis/symptom? @ -Suicide attempt Acute, or Chronic, or Acute on Chronic? @ -Acute Uncomplicated (without systemic symptoms) or Complicated (systemic symptoms)? @ -Complicated Side effects of treatment? @ -[No] Exacerbation, Progression, or Severe Exacerbation? @ -[No] Poses a threat to life or bodily function? How? (Chest pain, [place], [place], pneumonia, PE, COPD, DKA, ARF, appy, cholecystitis, CVA, Diverticulitis, Homicidal, Suicidal, threat to staff... and all critical care pts) @ -Patient is suicidal and if he makes his significant symptoms he could kill himself. - Lab Data Lab Results 04/24/23 04/24/23 Range/Units 12:44 12:44 Urine Color Light Yellow Urine Appearance Clear (Clear) Urine pH 5.0 (5.0-8.0) Ur Specific [place] 1.017 (1.001-1.035) Urine Protein Negative (Negative) Urine Glucose (UA) Negative (Negative) Urine Ketones 2+ H (Negative) Urine Blood Small H (Negative) Urine Nitrite Negative (Negative) Urine Bilirubin Negative (Negative) Urine Urobilinogen <2.0 (<2.0) mg/dL Ur Leukocyte Esterase Negative (Negative) Urine RBC <1 (0-5) /hpf Urine Mucus Rare H (None) /hpf Urine Opiates Screen Not Detected (NotDetected) Ur Oxycodone Screen Not Detected (NotDetected) Urine Methadone Screen Not Detected (NotDetected) Ur Propoxyphene Screen Not Detected (NotDetected) Ur Barbiturates Screen Not Detected (NotDetected) U Tricyclic Antidepress Not Detected (NotDetected) Ur Phencyclidine Scrn Not Detected (NotDetected) Ur Amphetamines Screen Not Detected (NotDetected) U Methamphetamines Scrn Not Detected (NotDetected) U Benzodiazepines Scrn Detected H (NotDetected) Urine Cocaine Screen Not Detected (NotDetected) U Marijuana (THC) Screen Detected H (NotDetected) Disposition Clinical Impression: Depression, Attempted suicide Disposition: ADMITTED IP TO THIS [facility] Referrals: Quintin Thompson MD [Primary Care Provider] - 1-2 days Time of Disposition: 14:22
[2023-04-24 12:57] LABS: Appearance,Urine Clear (Clear); Bilirubin,Urine Negative (Negative); Blood,Urine Small (Negative); Color,Urine Light Yellow; Glucose,Urine (UA) Negative (Negative); Ketones,Urine 2+ (Negative); Leukocyte Esterase,Urine Negative (Negative); Mucus,Urine Rare /hpf; Nitrite,Urine Negative (Negative); Protein,Urine Negative (Negative); RBC,Urine <1 /hpf (0-5); Specific Gravity,Urine 1.017 (1.001-1.035); Urobilinogen,Urine <2.0 mg/dL (<2.0)
[2023-04-24 13:07] LABS: Amphetamine Screen,Urine Not Detected (NotDetected); Barbiturate Screen,Urine Not Detected (NotDetected); Benzodiazepines Screen,Urine Detected (NotDetected); Cocaine Screen,Urine Not Detected (NotDetected); Methadone Screen, Urine Not Detected (NotDetected); Opiate Screen,Urine Not Detected (NotDetected); Oxycodone Screen, Urine Not Detected (NotDetected); Phencyclidine Screen,Urine Not Detected (NotDetected); Tricyclic Antidepressant,Urine Not Detected (NotDetected); Urn Cannabinoid Scrn Detected (NotDetected)
[2023-04-24] MEDS ORDERED: MAG HYDROX/AL HYDROX/SIMETH 30 ML CUP PO PRN (17:03)
[2023-04-24] MEDS ORDERED: ACETAMINOPHEN TAB 325 MG TAB PO PRN (17:03)
[2023-04-24] MEDS ORDERED: MAGNESIUM HYDROXIDE 2,400 MG/30 ML CUP PO PRN (17:03)
[2023-04-24] MEDS ORDERED: haloperidoL 5 MG TAB PO PRN (17:09)
[2023-04-24] MEDS ORDERED: HALOPERIDOL LACTATE 5 MG/ML 1 ML VIAL IM PRN (17:09)
[2023-04-24] MEDS: LORazepam 1 MG TAB PO SCH ×2 (17:48→20:31)
[2023-04-24 18:16] LABS: HCT 46.9 % (39.0-53.0); HGB 15.3 gm/dL (13.0-17.5); MCH 28.1 pg (25.0-35.0); MCHC 32.7 g/dL (31.0-37.0); MCV 85.7 fL (80.0-100.0); Mean Platelet Volume 8.4; Platelet Count 192 k/uL (150-450); RBC 5.47 m/uL (4.30-5.90); RDW 12.6 % (11.5-15.5)
[2023-04-24 18:34] LABS: ALT 80 U/L (4-49); AST 267 U/L (17-59); African American GFR (CKD) >90 (>60 ml/min/1.73 sqM); Albumin 4.9 g/dL (3.5-5.0); Alkaline Phosphatase 56 U/L (38-126); Anion Gap 6 mmol/L; Blood Urea Nitrogen 14 mg/dL (9-20); Calcium 9.3 mg/dL (8.4-10.2); Carbon Dioxide 27 mmol/L (22-30); Chloride 104 mmol/L (98-107); Glucose 90 mg/dL (74-99); Non-African American GFR(CKD) >90 (>60 ml/min/1.73 sqM); Sodium 137 mmol/L (137-145); Total Bilirubin 0.9 mg/dL (0.2-1.3); Total Protein 7.8 g/dL (6.3-8.2)
--- NOTE | 2023-04-24 22:30 | P.CONS ---
History of Present Illness - Reason for Consult Consult date: 04/24/23 - History of Present Illness The patient is a 37-year-old male with a PMH of depression and anxiety who presented to the emergency room with complaint of depression and suicidal ideation. The patient was admitted to the mental health unit when he was seen and evaluated. The patient reports that he recently discovered that his is planning on him and that she is seeing other people. He attempted to commit suicide by himself. He reports long standing abdominal discomfort for which he recently underwent an EGD and colonoscopy and is scheduled for follow- up appointment for the results with Dr. Amato. He denied any additional complaints at the time of interview. There are experiencing chest discomfort, shortness of breath, fever, chills, cough, nausea, vomiting, diarrhea. Reports recreational marijuana use with social once or twice monthly alcohol use. Denied any additional substance use. Denied tobacco use. Review of systems: Pertinent positives and negatives as discussed in HPI, a complete review of systems was performed and all other systems are negative. Physical examination: General: non toxic, no distress, appears at stated age, normal weight Derm: no unusual rashes/lesions, no unusual ecchymoses, warm, dry Head: atraumatic, normocephalic, symmetric Eyes: EOMI, no lid lag, anicteric sclera ENT: Nose and ears atraumatic, no thrush, no pharyngeal erythema Neck: trachea midline, supple Mouth: no lip lesion, mucus membranes moist Cardiovascular: S1S2 reg, no murmur, no edema Lungs: CTA bilateral, no rhonchi, no rales , no accessory muscle use Abdominal: soft, nontender to palpation, no guarding Ext: no gross muscle atrophy, no contractures, Neuro: No gross focal neuro deficits noted Psych: Alert, oriented, appropriate affect Assessment: Marijuana abuse Abnormal LFTs, unclear etiology Depression and suicidal ideation Imaging: None performed Data Review: Laboratory evaluation was reviewed with UA unremarkable with urine toxicology positive for marijuana and benzodiazepines with AST 267 and ALT is 80. Plan: Advised on importance of cessation Monitor LFTs for improvement Defer management to primary psychiatry service Thank you for allowing us to participate in the care of this patient. We will follow peripherally. Do not hesitate to contact us with the pain and 1 and is he is a pleasant is and is is a 2000 and is questions. Someone can be reached from the [facility] hospitalist group at all hours of the day at . Past Medical History Past Medical History: GERD/Reflux, Hypertension Additional Past Medical History / Comment(s): Nausea/rectal bleeding. Stomach ulcer as a child History of Any Multi-Drug Resistant Organisms: None Reported Past Surgical History: No Surgical Hx Reported Additional Past Surgical History / Comment(s): EGD Past Anesthesia/Blood Transfusion Reactions: No Reported Reaction Past Psychological History: Anxiety, Depression Additional Psychological History / Comment(s): Pt resides with spouse, child Smoking Status: Never smoker Past Alcohol Use History: Rare Additional Past Alcohol Use History / Comment(s): Pt started smoking in 1997 and quit 12 yrs ago. Past Drug Use History: Marijuana Additional Drug Use History / Comment(s): Smokes marijuana daily. - Past Family History Father Family Medical History: Coronary Artery Disease (CAD), Diabetes Mellitus, Hypertension Additional Family Medical History / Comment(s): Rare bone disease/tumors Mother Family Medical History: No Reported History Medications and Allergies Home Medications Medication Instructions Recorded Confirmed Type Citalopram Hydrobromide 40 mg PO DAILY 10/25/20 04/24/23 History [Citalopram HBr] ALPRAZolam [Xanax] 0.125 - 0.25 mg PO BID PRN 04/10/23 04/24/23 History Allergies Allergy/AdvReac Type Severity Reaction Status Date / Time No Known Allergies Allergy Verified 04/24/23 11:07 Physical Exam Vitals: Vital Signs Temp Pulse Pulse Resp BP BP Pulse Ox 04/24/23 17:59 97.7 F 64 16 148/97 100 04/24/23 17:10 98.6 F 78 18 160/84 98 04/24/23 11:02 98.1 F 68 18 172/109 98 Intake and Output 04/24/23 04/24/23 04/24/23 06:59 14:59 22:59 Other: Weight 71.668 kg 71.668 kg Results CBC & Chem 7: 04/24/23 17:56 04/24/23 17:56 Labs: Abnormal Lab Results - Last 24 Hours (Table) 04/24/23 04/24/23 04/24/23 Range/Units 12:44 12:44 17:56 AST 267 H (17-59) U/L ALT 80 H (4-49) U/L Urine Ketones 2+ H (Negative) Urine Blood Small H (Negative) Urine Mucus Rare H (None) /hpf U Benzodiazepines Scrn Detected H (NotDetected) U Marijuana (THC) Screen Detected H (NotDetected)
[2023-04-25] MEDS: CITALOPRAM HYDROBROMIDE 20 MG TAB PO SCH (07:56)
[2023-04-25] MEDS: LORazepam 1 MG TAB PO SCH ×2 (07:56→12:39)
[2023-04-25] MEDS: NICOTINE 14MG/24HR PATCH TRANSDERM SCH (07:57)
[2023-04-25 08:08] LABS: ALT 84 U/L (4-49); AST 254 U/L (17-59); African American GFR (CKD) >90 (>60 ml/min/1.73 sqM); Albumin 4.5 g/dL (3.5-5.0); Alkaline Phosphatase 51 U/L (38-126); Anion Gap 5 mmol/L; Blood Urea Nitrogen 14 mg/dL (9-20); Calcium 9.2 mg/dL (8.4-10.2); Carbon Dioxide 28 mmol/L (22-30); Chloride 104 mmol/L (98-107); Glucose 94 mg/dL (74-99); Non-African American GFR(CKD) 85 (>60 ml/min/1.73 sqM); Potassium 4.7 mmol/L (3.5-5.1); Sodium 137 mmol/L (137-145); Total Bilirubin 0.9 mg/dL (0.2-1.3); Total Protein 7.2 g/dL (6.3-8.2)
--- NOTE | 2023-04-25 12:54 | P.HP ---
Psychiatric H&P - . H&P Date: 04/25/23 History & Physical: Allergies Allergy/AdvReac Type Severity Reaction Status Date / Time No Known Allergies Allergy Verified 04/24/23 11:07 Vital Signs Temp 97.7 F 04/24/23 17:59 Pulse 89 04/25/23 04:05 Resp 16 04/24/23 17:59 BP 125/84 04/25/23 04:05 Pulse Ox 100 04/24/23 17:59 FiO2 Intake & Output 04/24/23 04/25/23 04/25/23 18:59 06:59 18:59 Weight 71.668 kg Laboratory Last Values WBC 8.0 k/uL (3.8-10.6) 04/24/23 17:56 RBC 5.47 m/uL (4.30-5.90) 04/24/23 17:56 Hgb 15.3 gm/dL (13.0-17.5) 04/24/23 17:56 Hct 46.9 % (39.0-53.0) 04/24/23 17:56 MCV 85.7 fL (80.0-100.0) 04/24/23 17:56 MCH 28.1 pg (25.0-35.0) 04/24/23 17:56 MCHC 32.7 g/dL (31.0-37.0) 04/24/23 17:56 RDW 12.6 % (11.5-15.5) 04/24/23 17:56 Plt Count 192 k/uL (150-450) 04/24/23 17:56 MPV 8.4 04/24/23 17:56 Sodium 137 mmol/L (137-145) 04/25/23 07:19 Potassium 4.7 mmol/L (3.5-5.1) 04/25/23 07:19 Chloride 104 mmol/L (98-107) 04/25/23 07:19 Carbon Dioxide 28 mmol/L (22-30) 04/25/23 07:19 Anion Gap 5 mmol/L 04/25/23 07:19 BUN 14 mg/dL (9-20) 04/25/23 07:19 Creatinine 1.10 mg/dL (0.66-1.25) 04/25/23 07:19 Est GFR (CKD-EPI)AfAm >90 (>60 ml/min/1.73 sqM) 04/25/23 07:19 Est GFR (CKD-EPI)NonAf 85 (>60 ml/min/1.73 sqM) 04/25/23 07:19 Glucose 94 mg/dL (74-99) 04/25/23 07:19 Calcium 9.2 mg/dL (8.4-10.2) 04/25/23 07:19 Total Bilirubin 0.9 mg/dL (0.2-1.3) 04/25/23 07:19 AST 254 U/L (17-59) H 04/25/23 07:19 ALT 84 U/L (4-49) H 04/25/23 07:19 Alkaline Phosphatase 51 U/L (38-126) 04/25/23 07:19 Total Protein 7.2 g/dL (6.3-8.2) 04/25/23 07: Albumin 4.5 g/dL (3.5-5.0) 04/25/23 07:19 TSH 6.100 mIU/L (0.465-4.680) H 04/25/23 07:19 Urine Color Light Yellow 04/24/23 12:44 Urine Appearance Clear (Clear) 04/24/23 12:44 Urine pH 5.0 (5.0-8.0) 04/24/23 12:44 Ur Specific [place] 1.017 (1.001-1.035) 04/24/23 12:44 Urine Protein Negative (Negative) 04/24/23 12:44 Urine Glucose (UA) Negative (Negative) 04/24/23 12:44 Urine Ketones 2+ (Negative) H 04/24/23 12:44 Urine Blood Small (Negative) H 04/24/23 12:44 Urine Nitrite Negative (Negative) 04/24/23 12:44 Urine Bilirubin Negative (Negative) 04/24/23 12:44 Urine Urobilinogen <2.0 mg/dL (<2.0) 04/24/23 12:44 Ur Leukocyte Esterase Negative (Negative) 04/24/23 12:44 Urine RBC <1 /hpf (0-5) 04/24/23 12:44 Urine Mucus Rare /hpf (None) H 04/24/23 12:44 Urine Opiates Screen Not Detected (NotDetected) 04/24/23 12:44 Ur Oxycodone Screen Not Detected (NotDetected) 04/24/23 12:44 Urine Methadone Screen Not Detected (NotDetected) 04/24/23 12:44 Ur Propoxyphene Screen Not Detected (NotDetected) 04/24/23 12:44 Ur Barbiturates Screen Not Detected (NotDetected) 04/24/23 12:44 U Tricyclic Antidepress Not Detected (NotDetected) 04/24/23 12:44 Ur Phencyclidine Scrn Not Detected (NotDetected) 04/24/23 12:44 Ur Amphetamines Screen Not Detected (NotDetected) 04/24/23 12:44 U Methamphetamines Scrn Not Detected (NotDetected) 04/24/23 12:44 U Benzodiazepines Scrn Detected (NotDetected) H 04/24/23 12:44 Urine Cocaine Screen Not Detected (NotDetected) 04/24/23 12:44 U Marijuana (THC) Screen Detected (NotDetected) H 04/24/23 12:44 Coronavirus (PCR) Not Detected (Not Detectd) 04/24/23 15:00 04/25/23 12:45 This is a psychiatric evaluation on Dede Larry who is a 37-year-old male with history of depression and chronic use of cannabis and mushrooms Patient states that he is currently going through problems in his marriage for the last 2 months Patient feels that he abandoned and his and that he was too focused on his work and gone from home quite a bit He says that 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 He states that he also was involved in marital counseling for the last 2 months He says that his had hinted that they should date someone else and move on Patient stated that he took her hint and called an old acquaintance to start a relationship He states that the checked his phone and after she found him trying to reach someone else that she decided to go for a divorce Patient reports that she was testing him and that he had failed the test He says that he felt very depressed and suicidal and that when he called his parents they decided to have him come to the hospital and get some help He states that he uses cannabis daily as well as also uses magic mushrooms from time to time Patient stated that he is a 14-year-old son with his Past history personal and social history as described above Patient currently lives with his and a 14-year-old child Patient denies any previous psychiatric hospitalizations or inpatient care patient reports that his parents are supportive Mental status examination: General Appearance: Patient appears to be stated age is alert, directable, and attempts to cooperate. Good eye contact Patient has earrings and is both ears Patient appears to have fair hygiene and grooming. Behavior: Patient is seated without any agitated behavior. Speech: Patient's speech is fluent and nonpressured. Soft tone. Mood/Affect: Patient reports their mood is depressed and anxious affect is congruent. Suicidality/Homicidality: Patient denies having any homicidal ideation intent or plan. Denies any suicidal ideations intent or plan Perceptions: Patient denies any visual hallucinations and denies any auditory hallucinations Though content/process: There is no evidence of any delusional thought content and thought process is linear and goal-directed. Memory and concentration: AOX3, grossly intact for the purposes of this session Judgment and insight: poor, Diagnosis: Adjustment disorder with mixed emotional features Major depressive disorder acute Bipolar disorder versus mild psychosis most likely drug related Marital conflicts Rule out personality disorder with borderline traits PLAN: -Patient is admitted under voluntary status to MHU for stabilization of psychiatric symptoms and safety. Continue Celexa 40 mg daily Patient was also taking Xanax at home and was started automatically on lorazepam in the hospital However with his history of substance use will see him to gabapentin 100 mg 3 times a day for anxiety when necessary Patient has signed adult voluntary form and medication consent and is placed in patient's chart. Haldol and Vistaril PRN for agitation/aggression -NRT - nicotine patch -SW on board for discharge planning. Encourage patient to participate in groups to work on coping skills. hopeful for discharge early next week if she continues to improve, possibly thursday vs thursday back home. Noah Bui M.D. 04/25/2023
[2023-04-25 13:18] LABS: Chol/HDL Ratio 3.87 Ratio; LDL Cholesterol,Calculated 115.7 mg/dL (0.0-131.0)
[2023-04-25] MEDS ORDERED: GABAPENTIN 100 MG CAP PO SCH (16:00)
[2023-04-25] MEDS ORDERED: hydrOXYzine pamoate 25 MG CAP PO PRN (18:17)
[2023-04-25] MEDS ORDERED: GABAPENTIN 100 MG CAP PO PRN (18:18)
[2023-04-25] MEDS: GABAPENTIN 100 MG CAP PO SCH (20:40)
[2023-04-25] MEDS: LORazepam 2 MG/ML INJ IM PRN (20:58)
[2023-04-26] MEDS: GABAPENTIN 100 MG CAP PO SCH ×3 (07:58→20:38)
[2023-04-26] MEDS: CITALOPRAM HYDROBROMIDE 20 MG TAB PO SCH (07:58)
[2023-04-26] MEDS: NICOTINE 14MG/24HR PATCH TRANSDERM SCH (08:00)
--- NOTE | 2023-04-26 09:56 | P.PN ---
Subjective Progress Note Date: 04/26/23 Principal diagnosis: Diagnosis: Adjustment disorder with mixed emotional features Major depressive disorder acute Bipolar disorder versus mild psychosis most likely drug related Marital conflicts Rule out personality disorder with borderline traits 04/26/23 The patient reports that he was very anxious and panicky when he was informed that the medications were not continued Patient referred to the gabapentin although this was never started since this was never discussed with the patient and the cocaine initially entering the order I had discontinued it until I discuss it with the patient This was then restarted after the nursing was able to talk to him and in the afternoon Patient was referring to his Ativan which was discontinued earlier although he had The Ativan when necessary in the chart which was still available to the patient Patient comes across as very simple and concrete Denies any suicidal or homicidal ideations or plans Mental status examination: General Appearance: Patient appears to be stated age is alert, directable, and attempts to cooperate. Good eye contact Patient has earrings and is both ears Patient appears to have fair hygiene and grooming. Behavior: Patient is seated without any agitated behavior. Speech: Patient's speech is fluent and nonpressured. Soft tone. Mood/Affect: Patient reports their mood is depressed and anxious affect is congruent. Suicidality/Homicidality: Patient denies having any homicidal ideation intent o r plan. Denies any suicidal ideations intent or plan Perceptions: Patient denies any visual hallucinations and denies any auditory hallucinations Though content/process: There is no evidence of any delusional thought content and thought process is linear and goal-directed. Memory and concentration: AOX3, grossly intact for the purposes of this session Judgment and insight: poor, Diagnosis: Adjustment disorder with mixed emotional features Major depressive disorder acute Bipolar disorder versus mild psychosis most likely drug related Marital conflicts Rule out personality disorder with borderline traits PLAN: -Patient is admitted under voluntary status to MHU for stabilization of psyc hiatric symptoms and safety. Continue Celexa 40 mg daily Patient was also taking Xanax at home and was started automatically on lorazepam in the hospital However with his history of substance use will see him to gabapentin 100 mg 3 times a day for anxiety when necessary Patient has signed adult voluntary form and medication consent and is placed in patient's chart. Haldol and Vistaril PRN for agitation/aggression -NRT - nicotine patch -SW on board for discharge planning. Encourage patient to participate in groups to work on coping skills. hopeful for discharge early next week if she continues to improve, possibly thursday vs thursday back home. Noah Bui M.D. 04/26/2023 Objective - Vital Signs Vital signs: Vital Signs Temp 97.7 F 04/24/23 17:59 Pulse 105 H 04/26/23 08:01 Resp 16 04/24/23 17:59 BP 138/90 04/26/23 08:01 Pulse Ox 100 04/24/23 17:59 FiO2 - Labs CBC & Chem 7: 04/24/23 17:56 04/25/23 07:19
[2023-04-26] MEDS: LORazepam 2 MG/ML INJ IM PRN (21:26)
[2023-04-27 06:04] VITALS: BP 128/85; PULSE 72; RESP 18; TEMP 97.9
[2023-04-27] MEDS: CITALOPRAM HYDROBROMIDE 20 MG TAB PO SCH (07:53)
[2023-04-27] MEDS: GABAPENTIN 100 MG CAP PO SCH (07:53)
--- NOTE | 2023-04-27 12:20 | P.DS ---
Providers Date of admission: 04/24/23 16:56 Expected date of discharge: 04/27/23 Attending physician: William Adams MD Consults: 04/24/23 17:03 Consult Physician Routine Consulting Provider: Giovany Reed Consult Reason/Comments: medical management Do you want consulting provider notified?: Yes Primary care physician: Patrice Thompson - Discharge Diagnosis(es) (1) Adjustment disorder with mixed emotional features Current Visit: Yes Status: Acute Priority: High (2) Major depressive disorder Current Visit: Yes Status: Acute Priority: High (3) Marital conflict Current Visit: Yes Status: Acute Priority: High (4) Personality disorder, unspecified Current Visit: Yes Status: Chronic Priority: Medium Hospital Course: Admission HPI: Initial psychiatric evaluation was completed by Dr. 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 He states that he also was involved in marital counseling for the last 2 months He says that his had hinted that they should date someone else and move on Patient stated that he took her hint and called an old acquaintance to start a relationship He states that the checked his phone and after she found him trying to reach someone else that she decided to go for a divorce Patient reports that she was testing him and that he had failed the test He says that he felt very depressed and suicidal and that when he called his parents they decided to have him come to the hospital and get some help He states that he uses cannabis daily as well as also uses magic mushrooms from time to time Patient stated that he is a 14-year-old son with his Past history personal and social history as described above Patient currently lives with his and a 14-year-old child Patient denies any previous psychiatric hospitalizations or inpatient care patient reports that his parents are supportive" Hospital course: Upon admission to the unit patient was initially presenting as anxious. Patient was however directable and agreeable to commence treatment. Patient got along well with other patients on the unit and followed unit protocol. Patient was compliant with the medications and denied any side effects throughout hospital course. Patient was started on his home medication of Celexa. His Xanax was held as the patient was started on Ativan as needed. He was started on gabapentin to due to his history of substance-abuse and off label prescribing for anxiety. Patient spoke of his stressors and engaged in therapy both group and individual. Patient was also seen by medical team for history and physical exam. Over the course of the hospitalization, the patient displayed gradual but signif icant improvement regards to his target symptoms of depression, anxiety, and suicidal ideation. He attended groups with the high-level participation. He became more future and goal oriented and develop better insight and judgment. He reported wanting to live for himself and for his family. He expressed future orientation stating that his son would be starting high school and would have orientation on 04/28/2023. On the day of discharge, the patient is not reporting any suicidal or homicidal ideation, intention, and/or plan. He is not reporting any auditory or visual hallucinations. He denies any paranoia or other delusions. He has been adherent with his medication is not endorsing any significant side effects. He reports no medical issues or concerns and denies any chest pain, shortness of breath, palpitations, akathisia, or tardive dyskinesia. He was counseled at length and the importance of medication adherence and appropriate outpatient follow-up. He was also provided with psychoeducation regarding personality disorders and marital conflict. As the patient no longer met criteria for continued inpatient psychiatric hospitalization, he was subsequently discharged after appropriate safety planning. The patient did report that he had firearms in the home however her treatment team has been able to confirm that he would not have access as they are currently locked up and he would not have access to the hill. Mental status exam: General Appearance: Patient appears to be stated age is alert, pleasant, and cooperative. Patient is in no acute distress and has fair hygiene and grooming Behavior: Patient is calmly seated without any agitated behavior. Speech: Patient's speech is fluent and nonpressured. Mood/Affect: Patient reports their mood is "much better", affect is congruent and euthymic to bright. Suicidality/Homicidality: Patient reports no suicidal or homicidal ideation, intention, and/or plan Perceptions: Patient denies any auditory or visual hallucinations. Though content/process: There is no evidence of any delusional thought content and thought process is linear and goal-directed. The patient is future and goal oriented Memory and concentration: AOX3, grossly intact for the purposes of this session. Can spell "WORLD" backwards correctly. Judgment and insight: Improved Impression: Adjustment disorder with mixed emotional features Major depressive disorder acute Marital conflicts Rule out personality disorder with borderline traits Plan: -Continue with discharge today as patient has improved and stabilized psychiatrically and is not currently an imminent threat to himself and/or others. Patient will remain at chronically elevated risk due to a prior attempt at suicide. He does however have numerous protective factors including duty to his son. -Continue medications: Celexa 40 mg by mouth daily for depression/anxiety Neurontin 200 mg by mouth 3 times a day for off label use for anxiety. Patient understands that this is not FDA approved for anxiety however is agreeable to utilizing the medication. -Patient was counseled on the need for medication compliance and appropriate follow-up at mental health and also primary care for medical issues. Patient verbalized understanding and agreed. -Social work to arrange for and conduct family meeting to ensure safety upon discharge and answer any questions/concerns. Social work also to arrange for patients [facility] along with follow up with primary care provider. -Patient counseled on abstaining from recreational drugs and marijuana and alcohol. Was informed/educated on the adverse effects on their physical and mental health. Patient verbally agreed and understood. -Patient was instructed to return to the hospital or seek immediate medical care if their psychiatric or medical symptoms do worsen or reoccur. -Psychoeducation and supportive therapy provided to patient. Risks and benefits of pharmacological treatment versus the risks and benefits of nontreatment weighed and discussed. Informed consent discussion held. Common side effects of psychotropics discussed such as, but not limited to headache, GI disturbance, sexual dysfunction, movement disorders, sedation, and orthostatic hypotension. Life threatening and blackbox warnings of prescribed medications also discussed. Potential risks of operating a vehicle or heavy machinery discussed with patient at length. Advised on importance of compliance and a reliable and responsible manner. Patient advised to review FDA consumer labeling of all medications prior to taking. Patient verbalized understanding of potential risks, and agrees with current treatment plan. Patient advised to medically contact physician/emergency personnel if any acute changes in condition occur. Vital Signs Temp 97.9 F 04/27/23 06:04 Pulse 72 04/27/23 06:04 Resp 18 04/27/23 06:04 BP 128/85 04/27/23 06:04 Pulse Ox 98 04/27/23 06:04 FiO2 Intake & Output 04/26/23 04/27/23 04/27/23 18:59 06:59 18:59 Weight 70.7 kg Laboratory Results WBC 8.0 k/uL (3.8-10.6) 04/24/23 17:56 RBC 5.47 m/uL (4.30-5.90) 04/24/23 17:56 Hgb 15.3 gm/dL (13.0-17.5) 04/24/23 17:56 Hct 46.9 % (39.0-53.0) 04/24/23 17:56 MCV 85.7 fL (80.0-100.0) 04/24/23 17:56 MCH 28.1 pg (25.0-35.0) 04/24/23 17:56 MCHC 32.7 g/dL (31.0-37.0) 04/24/23 17:56 RDW 12.6 % (11.5-15.5) 04/24/23 17:56 Plt Count 192 k/uL (150-450) 04/24/23 17:56 MPV 8.4 04/24/23 17:56 Sodium 137 mmol/L (137-145) 04/25/23 07:19 Potassium 4.7 mmol/L (3.5-5.1) 04/25/23 07:19 Chloride 104 mmol/L (98-107) 04/25/23 07:19 Carbon Dioxide 28 mmol/L (22-30) 04/25/23 07:19 Anion Gap 5 mmol/L 04/25/23 07:19 BUN 14 mg/dL (9-20) 04/25/23 07:19 Creatinine 1.10 mg/dL (0.66-1.25) 04/25/23 07:19 Est GFR (CKD-EPI)AfAm >90 (>60 ml/min/1.73 sqM) 04/25/23 07:19 Est GFR (CKD-EPI)NonAf 85 (>60 ml/min/1.73 sqM) 04/25/23 07:19 Glucose 94 mg/dL (74-99) 04/25/23 07:[address] Glu mg/dL 111 mg/dL 04/25/23 07:19 Hemoglobin A1c 5.5 % (<=6.0) 04/25/23 07:19 Calcium 9.2 mg/dL (8.4-10.2) 04/25/23 07:19 Total Bilirubin 0.9 mg/dL (0.2-1.3) 04/25/23 07:19 AST 254 U/L (17-59) H 04/25/23 07:19 ALT 84 U/L (4-49) H 04/25/23 07:19 Alkaline Phosphatase 51 U/L (38-126) 04/25/23 07:19 Total Protein 7.2 g/dL (6.3-8.2) 04/25/23 07:19 Albumin 4.5 g/dL (3.5-5.0) 04/25/23 07:19 Triglycerides 115.00 mg/dL (0.00-149.00) 04/25/23 07:19 Cholesterol 187.00 mg/dL (0.00-200.00) 04/25/23 07:19 LDL Cholesterol, Calc 115.7 mg/dL (0.0-131.0) 04/25/23 07:19 VLDL Cholesterol, Calc 23.00 mg/dL (5.00-40.00) 04/25/23 07:19 HDL Cholesterol 48.30 mg/dL (40.00-60.00) 04/25/23 07:19 Cholesterol/HDL Ratio 3.87 Ratio 04/25/23 07:19 TSH 6.100 mIU/L (0.465-4.680) H 04/25/23 07:19 Urine Color Light Yellow 04/24/23 12:44 Urine Appearance Clear (Clear) 04/24/23 12:44 Urine pH 5.0 (5.0-8.0) 04/24/23 12:44 Ur Specific [place] 1.017 (1.001-1.035) 04/24/23 12:44 Urine Protein Negative (Negative) 04/24/23 12:44 Urine Glucose (UA) Negative (Negative) 04/24/23 12:44 Urine Ketones 2+ (Negative) H 04/24/23 12:44 Urine Blood Small (Negative) H 04/24/23 12:44 Urine Nitrite Negative (Negative) 04/24/23 12:44 Urine Bilirubin Negative (Negative) 04/24/23 12:44 Urine Urobilinogen <2.0 mg/dL (<2.0) 04/24/23 12:44 Ur Leukocyte Esterase Negative (Negative) 04/24/23 12:44 Urine RBC <1 /hpf (0-5) 04/24/23 12:44 Urine Mucus Rare /hpf (None) H 04/24/23 12:44 Urine Opiates Screen Not Detected (NotDetected) 04/24/23 12:44 Ur Oxycodone Screen Not Detected (NotDetected) 04/24/23 12:44 Urine Methadone Screen Not Detected (NotDetected) 04/24/23 12:44 Ur Propoxyphene Screen Not Detected (NotDetected) 04/24/23 12:44 Ur Barbiturates Screen Not Detected (NotDetected) 04/24/23 12:44 U Tricyclic Antidepress Not Detected (NotDetected) 04/24/23 12:44 Ur Phencyclidine Scrn Not Detected (NotDetected) 04/24/23 12:44 Ur Amphetamines Screen Not Detected (NotDetected) 04/24/23 12:44 U Methamphetamines Scrn Not Detected (NotDetected) 04/24/23 12:44 U Benzodiazepines Scrn Detected (NotDetected) H 04/24/23 12:44 Urine Cocaine Screen Not Detected (NotDetected) 04/24/23 12:44 U Marijuana (THC) Screen Detected (NotDetected) H 04/24/23 12:44 Coronavirus (PCR) Not Detected (Not Detectd) 04/24/23 15:00 Allergies Allergy/AdvReac Type Severity Reaction Status Date / Time No Known Allergies Allergy Verified 04/24/23 11:07 Patient Condition at Discharge: Stable Plan - Discharge Summary Discharge Rx Participant: No New Discharge Prescriptions: New Citalopram Hydrobromide [CeleXA] 40 mg PO DAILY 15 Days #30 tab Gabapentin [Neurontin] 200 mg PO TID 15 Days #90 cap Discontinued Citalopram Hydrobromide [Citalopram HBr] 40 mg PO DAILY ALPRAZolam [Xanax] 0.125 - 0.25 mg PO BID PRN PRN Reason: Anxiety Discharge Medication List Citalopram Hydrobromide [CeleXA] 40 mg PO DAILY 15 Days #30 tab 04/27/23 [Rx] Gabapentin [Neurontin] 200 mg PO TID 15 Days #90 cap 04/27/23 [Rx] Follow up Appointment(s)/Referral(s): [facility] - 05/01/23 1:30 pm (Georgina Meyers Arrive at !:30 with insurance card, and identification card) Quintin Thompson MD [Primary Care Provider] - 1-2 days Patient Instructions/Handouts: Depression (DC) Activity/Diet/Wound Care/Special Instructions: Avoid the use of street drugs and alcohol. Take all medications as prescribed. When you are in need of refills on your medications, please contact your medical provider and/or outpatient psychiatrist/provider to have this done. Please go to your scheduled outpatient appointment for aftercare treatment. If symptoms return or become worse, call the crisis line at and/or go to the nearest emergency room for evaluation. National Suicide Hotline 058. Discharge Disposition: HOME SELF-CARE
[2023-04-27] MEDS ORDERED: GABAPENTIN 100 MG CAP PO SCH (16:00)
== END 2023-04-27 12:57 | disposition home or self-care (01) | DRG 882 ==
LOC: EC 10:56 → 3MHU 16:56
PROVIDERS: ADMIT Psychiatry & Neurology Psychiatry; ATTEND Psychiatry & Neurology Psychiatry
DX: F43.23 Adjustment disorder with mixed anxiety and depressed mood (principal); F33.9 Major depressive disorder, recurrent, unspecified; R45.851 Suicidal ideations; Z20.822 Contact with and (suspected) exposure to COVID-19; F43.12 Post-traumatic stress disorder, chronic; F12.10 Cannabis abuse, uncomplicated; R74.01 Elevation of levels of liver transaminase levels; I10 Essential (primary) hypertension; K21.9 Gastro-esophageal reflux disease without esophagitis; Z63.0 Problems in relationship with spouse or partner; Z79.899 Other long term (current) drug therapy; Z87.11 Personal history of peptic ulcer disease; Z91.51 Personal history of suicidal behavior
CPT/HCPCS: 80053; 80061; 80306; 81001; 82075; 83036; 84443; 85027; 87635; 99285